=== PATIENT | male | born 1985 | race African-American/Black ===

== ENCOUNTER 2019-11-22 14:04 | Emergency (ER) | payer OTHER ==
[~2019-11-22] VITALS: Ht 175.3 cm; Wt 117.9 kg
[~2019-11-22 14:04] MED LIST: DOXYCYCLINE 10100 MG PO; KEFLEX500 MG PO; MEDROLDOSEPACK PO; NORCO 5-325 TA1 EACH PO; PROAIR HFA8.5 GM PO; ULTRAM 50MG TAB50 MG PO; ZYRTEC10 M5 PO
[2019-11-22 14:28] LABS: ABSOLUTE BASOPHILS 0.1 thou/uL (0.0-0.2); ABSOLUTE EOSINOPHILS 0.2 thou/uL (0.0-0.7); ABSOLUTE LYMPHOCYTES 2.7 thou/uL (0.8-5.3); ABSOLUTE MONOCYTES 0.5 thou/uL (0.0-1.2); ABSOLUTE NEUTROPHILS 5.1 thou/uL (1.6-8.1); EOSINOPHILS 2.1 %; HEMATOCRIT 45.3 % (42.0-52.0); HEMOGLOBIN 15.1 gm/dL (14.0-18.0); LYMPHOCYTES 31.2 %; MCH 29.6 pg (26.0-34.0); MCHC 33.4 g/dL (28.0-37.0); MCV 88.8 fL (80.0-100.0); MPV 8.4 fl. (7.2-11.1); NUCLEATED RBCS 0 /100WBC; PLATELET COUNT* 289 thou/uL (150-400); POLYS 59.7 %; RDW-CV 12.3 % (10.5-14.5); WBC 8.5 thou/uL (4.0-11.0)
[2019-11-22 14:33] LABS: CALCIUM 8.2 mg/dL (8.5-10.1); CREATININE 1.1 mg/dL (0.6-1.3); POTASSIUM 3.5 mmol/L (3.5-5.1)
[2019-11-22 14:36] LABS: APTT 29.4 Seconds (25.0-31.3); PROTIME 10.6 Seconds (9.20-11.50)
[2019-11-22 14:45] LABS: CK-MB MASS 0.8 ng/mL (<0.5-3.6); MAGNESIUM 1.8 mg/dL (1.8-2.4); TOTAL BILIRUBIN 0.6 mg/dL (<0.1-1.0); TOTAL PROTEIN 7.8 g/dL (6.4-8.2)
[2019-11-22 15:40] VITALS: BP 122/84
--- NOTE | 2019-11-23 10:13 | EKG ---
[place] [address] ELECTROCARDIOGRAM REPORT Name: JHON KENT Room: [facility]#: [id number] Admission: 11/22/19 Attend Phys: Discharge: 11/22/19 Date of : 81 Date of Service: 11/22/19 1407 Report #: [id number] THIS REPORT FOR: //name// [facility] ED Test Date: 2019-11-22 Test Time: 14:07:33 Pat Name: JHON KENT Department: Room: Gender: Manager Route: BELLO : 1985 Requested By: Jorge Forte Order Number: [id number] MD: Maxim Rodriguez Measurements Intervals [employer] Rate: 110 P: 49 PA: 139 QRS: -18 QRSD: 91 T: 9 QT: 317 QTc: 429 Interpretive Statements Sinus tachycardia Probable left atrial enlargement Borderline left axis deviation RSR' in V1 or V2, probably normal variant Baseline wander in lead(s) I,aVL Compared to ECG 01/26/2017 21:52:06 RSR' in V1 or V2 now present Electronically Signed On 11-23-2019 10:12:00 CDT by Maxim Rodriguez [email or web address] <ELECTRONICALLY SIGNED> By: Cynthia Rodriguez MD, [facility] 11/23/19 1012 06 140 Cynthia Rodriguez MD, [facility] /EPI
== END 2019-11-22 15:41 | disposition home or self-care (01) ==
LOC: M.ERS 14:04
PROVIDERS: Family Medicine
DX: R07.89 Other chest pain (principal); J45.909 Unspecified asthma, uncomplicated; Z88.1 Allergy status to other antibiotic agents; Z88.6 Allergy status to analgesic agent; Z88.2 Allergy status to sulfonamides; Z79.899 Other long term (current) drug therapy

== ENCOUNTER 2020-01-04 17:18 | Emergency (ER) | payer OTHER ==
[~2020-01-04] VITALS: Ht 175.3 cm; Wt 124.7 kg
[2020-01-04] MEDS ORDERED: CLARITIN10 M3 PO (17:41)
[2020-01-04] MEDS ORDERED: NEXIUM20 M1 PO (17:41)
[2020-01-04] MEDS ORDERED: INCRUSE ELLI62.5 MCG INH (17:42)
[2020-01-04] MEDS ORDERED: FLEXERIL PO (18:14)
[2020-01-04 18:27] VITALS: BP 146/89
== END 2020-01-04 18:28 | disposition home or self-care (01) ==
LOC: M.ERS 17:18
DX: S40.012A Contusion of left shoulder, initial encounter (principal); S10.83XA Contusion of other specified part of neck, initial encounter; M54.12 Radiculopathy, cervical region; R03.0 Elevated blood-pressure reading, without diagnosis of hypertension; M75.22 Bicipital tendinitis, left shoulder; J45.909 Unspecified asthma, uncomplicated; Z88.1 Allergy status to other antibiotic agents; Z91.040 Latex allergy status; Z88.2 Allergy status to sulfonamides; Z88.6 Allergy status to analgesic agent; X58.XXXA Exposure to other specified factors, initial encounter; Y93.89 Activity, other specified; Y92.89 Other specified places as the place of occurrence of the external cause; Y99.8 Other external cause status